=== PATIENT | female | born 1950 | race Caucasian/White ===

== ENCOUNTER 2024-01-02 08:24 | Outpatient (OUT) | payer MEDICARE, SELFPAY ==
--- NOTE | 2024-01-02 08:39 | CT_ITS ---
The [address] [address] Patient Name: HEVER SANTOS MRN: [id number] date: 1950 Sex: F Assigned Patient Location: LAB Current Patient Location: LAB Accession/Order Number: [id number] Exam Date: 01/02/2024 09:40 Report Date: 01/02/2024 11:10 At the request of: PETRA BELL Procedure: CT head/brain wo/w con CT head/brain wo/w con, 01/02/2024 9:40 AM EDT INDICATION: Expressive Dysphagia R47.02, Headache R51.9 COMPARISON: There is no appropriate prior study for comparison. TECHNIQUE: Axial CT images of the brain from skull base to vertex, including portions of the face and sinuses, were obtained without and with contrast . Multiplanar reformatted images were generated and reviewed as needed. Dose reduction techniques were achieved by using automated exposure control and/or adjustment of mA and/or kV according to patient size and/or use of iterative reconstruction technique. FINDINGS: The cerebral sulci as well as ventricular system are appropriate for age. There is no intracranial mass, mass effect, midline shift, intra or extra-axial fluid collection or hemorrhage. Periventricular and centrum semiovale hypodensities are most likely consistent with microvascular ischemic changes. No abnormal enhancing lesion is noted. The visualized portions of orbits, mastoid air cells as well as paranasal sinuses are unremarkable. There is status post bilateral lens replacement. There is no suspicious osteolytic or osteoblastic lesion. CT/CT head/brain wo/w con IMPRESSION: No acute intracranial process is noted. Electronically authenticated by: ADELAIDA GAMINO Date: 01/02/2024 11:10
--- NOTE | 2024-01-02 08:40 | US_ITS ---
[address] [address] Patient Name: HEVER SANTOS MRN: [id number] date: 1950 Sex: F Assigned Patient Location: LAB Current Patient Location: LAB Accession/Order Number: [id number] Exam Date: 01/02/2024 08:50 Report Date: 01/02/2024 11:38 At the request of: PETRA BELL Procedure: US carotid duplex BI DUPLEX ULTRASOUND EXAMINATION OF THE CAROTID ARTERIES. COMPARISON: None. HISTORY / INDICATIONS: Evaluate carotid stenosis TECHNIQUE: Bilateral common carotid arteries, extracranial internal and external carotid arteries are evaluated with hampton-scale imaging, color Doppler, and spectral analysis according to a standard protocol. ICA-CCA ratios are calculated with automotive leasing sales representative peak-systolic velocities and recorded. Vertebral arteries are evaluated in one segment to evaluate for patency and character of flow. Comparison with previous evaluation is performed when available. Unless otherwise specified, all velocities are measured in cm/sec. Carotid stenosis is reported according to validated velocity parameters, similar to NASCET criteria. FINDINGS: Right Carotid: Plaque was noted. Velocity measurements as follows: Internal Carotid Artery 61/13, 66/17, and 90/25. ICA to CCA ratio: 1.2. Left Carotid: Plaque was noted. Velocity measurements as follows: Internal Carotid Artery 72/17, 49/14, and 64/16. ICA to CCA ratio: 0.9. Antegrade flow was seen in both vertebral arteries. Note is made of a heterogeneous 5.2 x 3.7 x 2.8 cm complex appearing left thyroid nodule. Recommend dedicated thyroid ultrasound for further evaluation and characterization. CONCLUSION: 1. Less than 50% stenosis of the right ICA. 2. Less than 50% stenosis of the left ICA. 3. Vertebral arteries are patent and demonstrate antegrade flow. 4. Left lobe thyroid nodule. Recommend dedicated thyroid ultrasound. Electronically authenticated by: Nasima NICOLE Date: 01/02/2024 11:38
[2024-01-02 08:45] LABS: Estimated GFR (African America >60 (>=60); Estimated GFR (Non-African Ame >60 (>=60)
== END 2024-01-02 08:25 | disposition home or self-care (01) ==
LOC: LAB 08:24
PROVIDERS: PCP Family Medicine; Visit Provider Family Medicine
DX: R51.9 Headache, unspecified (principal); R47.02 Dysphasia; R47.1 Dysarthria and anarthria; E04.1 Nontoxic single thyroid nodule
CPT/HCPCS: 36415; 70470; 82565; 93880; Q9967